=== PATIENT | male | born 1970 | race Caucasian/White ===

== ENCOUNTER → 2018-02-14 09:27 | Outpatient (CLI) | payer OTHER, SELFPAY ==
--- NOTE | 2018-02-14 | DI.MRI.S_ITS ---
PROCEDURE: MR LUMBAR SPINE WO CON INDICATIONS: LOW BACK AND LEG PAIN TECHNIQUE: Noncontrast sagittal T1 spin echo and T2 fast echo, sagittal STIR, axial T1 and T2 fast spin echo through the lumbar spine. In cases with scoliosis, additional coronal T2 fast spin echo may be performed. COMPARISON: [facility] [place], CR, XR LUMBAR SPINE WITH OLBIQUES PLUS FLEXION EXTENSION, 08/04/2017, 15:01. FINDINGS: Image quality: Excellent. Alignment and Curvature: There is normal bony alignment. Bone Marrow: Benign intraosseous hemangioma noted in the L3 vertebral body. No acute vertebral body compression fractures. Spinal Cord: Conus medullaris terminates at the L1 level. Visualized cord demonstrates normal signal and size. Paraspinous Soft Tissues: No paravertebral masses. L1-L2: Slight loss of the signal. Minimal, diffuse disc bulge. Small left central disc protrusion. No central stenosis. No neural foraminal narrowing. No neural impingement. L2-L3: Normal appearance. L3-L4: Normal appearance. L4-L5: Loss of disc signal and slight loss of disc height. Mild, diffuse disc bulge and small central disc protrusion. Mild bilateral facet hypertrophy. Mild narrowing of the central canal. Mild bilateral neural foraminal narrowing. Right central disc protrusion abuts and slightly displaces the traversing right L5 nerve root. Focal high intensity zone noted in posterior annulus compatible with a fissure. L5-S1: Loss of disc signal. Mild diffuse disc bulge with small left central disc protrusion. Mild bilateral facet hypertrophy. No central stenosis. Mild bilateral neural foraminal narrowing. No neural impingement. Focal high intensity zone noted in the posterior annulus compatible with a fissure. IMPRESSION: 1. Multilevel degenerative disc disease. 2. Multilevel facet arthropathy. 3. Mild L4-L5 central canal narrowing. 4. Mild bilateral L4-L5 and L5-S1 neural foraminal narrowing. 5. Right central L4-L5 disc protrusion abuts and slightly displaces the traversing right L5 nerve root. Please correlate with clinical data. 6. L4-L5 and L5-S1 disc annulus fissures. Dictated by: Teresa Vasquez MD, PhD on 02/14/2018 at 14:27 Approved by: Teresa Vasquez MD, PhD on 02/14/2018 at 14:35
== END ==
PROVIDERS: PCP Internal Medicine; Visit Provider Neurological Surgery
DX: M51.36 Other intervertebral disc degeneration, lumbar region (principal); M47.816 Spondylosis without myelopathy or radiculopathy, lumbar region; M48.061 Spinal stenosis, lumbar region without neurogenic claudication; M48.07 Spinal stenosis, lumbosacral region; M51.26 Other intervertebral disc displacement, lumbar region
CPT/HCPCS: 72148

== ENCOUNTER → 2019-03-03 09:51 | Outpatient (CLI) | payer OTHER, SELFPAY ==
[2019-03-03 10:36] LABS: Hematocrit 48.7 % (41-53); Hemoglobin 16.7 g/dL (13.5-17.5); Mean Corpuscular HGB Conc 34.2 % (30-36); Mean Corpuscular Hemoglobin 30.8 PG (26-34); Platelet Count 213 X10^3/uL (150-400); Red Blood Cell Count 5.42 X10^6/uL (4.5-5.9); Red Cell Distribution Width 13.2 % (11.6-14.8); White Blood Cell Count 4.7 X10^3/uL (4.5-11.0)
[2019-03-03 10:42] LABS: Alanine Aminotransferase 40 IU/L (21-72); Albumin 4.3 g/dL (3.5-5.0); Albumin Globulin Ratio 1.4 (1.0-2.8); Alkaline Phosphatase 54 U/L (38-126); Aspartate Aminotransferase 29 IU/L (17-59); BUN Creatinine Ratio 13.3 (6-22); Blood Urea Nitrogen 16 mg/dL (9-20); Calcium 9.3 mg/dL (8.4-10.2); Carbon Dioxide 29 mmol/L (22-32); Chloride 101 mmol/L (98-107); Cholesterol 211 mg/dL (140-199); Estimated Glomerular Filt Rate > 60.0 mL/min (>60); Glucose 97 mg/dL (70-100); HDL Cholesterol 49 mg/dL (40-60); HEMOLYSIS < 15 (0-50); LDL Cholesterol Calculated 141 mg/dL (<100); Potassium 4.2 mmol/L (3.4-5.1); Sodium 140 mmol/L (137-145); Total Protein 7.3 g/dL (6.3-8.2); Triglycerides 106 mg/dL (35-150)
[2019-03-03 12:02] LABS: TSH w/ Reflex to FT4 2.14 uIU/mL (0.47-4.68)
== END ==
PROVIDERS: PCP Internal Medicine; Visit Provider Nurse Practitioner Family
DX: Z00.00 Encounter for general adult medical examination without abnormal findings (principal); Z13.6 Encounter for screening for cardiovascular disorders; I49.9 Cardiac arrhythmia, unspecified
CPT/HCPCS: 36415; 80053; 80061; 84443; 85027

== ENCOUNTER → 2019-05-22 08:58 | Outpatient (CLI) | payer OTHER, SELFPAY ==
--- NOTE | 2019-05-22 08:59 | DI.RAD.S_ITS ---
PROCEDURE: XR FOOT RT MIN 3V INDICATIONS: Fifth metatarsal pain with weight-bearing x 6 months TECHNIQUE: 3 views of the foot were acquired. COMPARISON: None. FINDINGS: Bones: No fractures or dislocations. Bipartite tibial first digit sesamoid bone. Small bunion and bunionette. Minimal lucency at the fifth and first digit metatarsal heads. Small midfoot osteophytes. No suspicious bony lesions. Soft tissues: No tibiotalar joint effusion. Achilles tendon appears normal. IMPRESSION: Subtle lucency at the fifth and first digit metatarsal heads. This raises the possibility of mild stress fractures. Small bunion and bunionette. Three-phase bone scan could be performed for further evaluation. Dictated by: Lino Reynoso M.D. on 05/22/2019 at 9:29 Approved by: Lino Reynoso M.D. on 05/22/2019 at 9:33
== END ==
PROVIDERS: PCP Internal Medicine; Visit Provider Nurse Practitioner
DX: M79.671 Pain in right foot (principal); M21.611 Bunion of right foot; M21.621 Bunionette of right foot
CPT/HCPCS: 73630

== ENCOUNTER → 2019-08-22 11:44 | Outpatient (CLI) | payer OTHER, SELFPAY ==
[2019-08-24 16:22] LABS: Urea Breath Test >18YRS NOT DETECTED
== END ==
PROVIDERS: PCP Nurse Practitioner Family; Referring Provider Nurse Practitioner Family; Visit Provider Nurse Practitioner Family
DX: K21.9 Gastro-esophageal reflux disease without esophagitis (principal)
CPT/HCPCS: 83013

== ENCOUNTER → 2019-09-11 09:02 | Outpatient (CLI) | payer OTHER, SELFPAY ==
[2019-09-11 09:56] LABS: Cholesterol 213 mg/dL (140-199); HDL Cholesterol 45 mg/dL (40-60); LDL Cholesterol Calculated 152 mg/dL (<100); Triglycerides 80 mg/dL (35-150)
== END ==
PROVIDERS: PCP Nurse Practitioner Family; Referring Provider Nurse Practitioner Family; Visit Provider Nurse Practitioner Family
DX: E78.2 Mixed hyperlipidemia (principal)
CPT/HCPCS: 36415; 80061

== ENCOUNTER → 2019-09-28 07:32 | Outpatient (CLI) | payer OTHER, SELFPAY ==
--- NOTE | 2019-09-28 07:34 | DI.RAD.S_ITS ---
PROCEDURE: FL BARIUM SWALLOW INDICATIONS: gerd. define anatomy. any stricture or hiatal hernia? COMPARISON: [facility], CR, XR FOOT RT MIN 3V, 05/22/2019, 9:02. FINDINGS: Function: There is normal esophageal peristalsis. No elicited gastroesophageal reflux. There is normal transit of a calibrated barium tablet through the esophagus into the stomach. Morphology: Air-contrast images demonstrate normal mucosal morphology. Single contrast views show no esophageal strictures, extrinsic mass effects, or diverticula. Limited images of the stomach demonstrate normal appearance. IMPRESSION: Normal upper GI exam. No esophageal stricture or hiatal hernia. No gastroesophageal reflux elicited during the exam. Dictated by: Alexander Back M.D. on 09/28/2019 at 9:43 Approved by: Alexander Back M.D. on 09/28/2019 at 9:44
== END ==
PROVIDERS: PCP Nurse Practitioner Family; Referring Provider Specialist; Visit Provider Specialist
DX: K21.9 Gastro-esophageal reflux disease without esophagitis (principal)
CPT/HCPCS: 74220

== ENCOUNTER → 2020-06-26 10:14 | Outpatient (CLI) | payer OTHER, SELFPAY ==
--- NOTE | 2020-06-26 10:15 | DI.RAD.S_ITS ---
PROCEDURE: XR ANKLE LT MIN 3V INDICATIONS: pain bilaterally, worse with mvmt, r/o bony abnormality TECHNIQUE: 3 views of the ankle were acquired. COMPARISON: None. FINDINGS: Bones: No fractures or dislocations. Ankle mortise is normally aligned. No suspicious bony lesions. The talar dome demonstrates no sofi abnormality. A moderate plantar calcaneal spur is seen. Soft tissues: No tibiotalar joint effusion. Achilles tendon appears normal. IMPRESSION: No significant plain film abnormality is seen. A moderate plantar calcaneal spur can be seen. If it would be helpful for clinical management decision making, please consider a dedicated ankle MRI for further evaluation (assuming that there is no contraindication). Dictated by: Shyam Howell M.D. on 06/26/2020 at 9:35 Approved by: Shyam Howell M.D. on 06/26/2020 at 9:36
== END ==
PROVIDERS: PCP Nurse Practitioner Family; Referring Provider Physician Assistant; Visit Provider Physician Assistant
DX: M25.572 Pain in left ankle and joints of left foot (principal); M77.32 Calcaneal spur, left foot
CPT/HCPCS: 73610

== ENCOUNTER → 2021-01-09 08:16 | Outpatient (CLI) | payer OTHER, SELFPAY ==
[2021-01-09 08:46] LABS: Hematocrit 45.8 % (41-53); Hemoglobin 15.8 g/dL (13.5-17.5); Mean Corpuscular HGB Conc 34.4 % (30-36); Mean Corpuscular Hemoglobin 31.3 PG (26-34); Mean Corpuscular Volume 90.9 fL (80-100); Platelet Count 209 X10^3/uL (150-400); Red Blood Cell Count 5.04 X10^6/uL (4.5-5.9); White Blood Cell Count 4.7 X10^3/uL (4.5-11.0)
[2021-01-09 08:58] LABS: Alanine Aminotransferase 37 IU/L (<50); Albumin 4.1 g/dL (3.5-5.0); Albumin Globulin Ratio 1.6 (1.0-2.8); Alkaline Phosphatase 60 U/L (38-126); Aspartate Aminotransferase 32 IU/L (17-59); BUN Creatinine Ratio 16.5 (6-22); Bilirubin Total 0.6 mg/dL (0.2-1.3); Blood Urea Nitrogen 19 mg/dL (9-20); Calcium 9.5 mg/dL (8.4-10.2); Carbon Dioxide 28 mmol/L (22-32); Chloride 106 mmol/L (98-107); Cholesterol 212 mg/dL (140-199); Estimated Glomerular Filt Rate > 60.0 mL/min (>60); Globulin 2.6 g/dL (1.7-4.1); Glucose 108 mg/dL (70-100); HDL Cholesterol 62 mg/dL (40-60); HEMOLYSIS < 15 (0-50); LDL Cholesterol Calculated 137 mg/dL (<100); Potassium 4.4 mmol/L (3.4-5.1); Sodium 140 mmol/L (137-145); Total Protein 6.7 g/dL (6.3-8.2); Triglycerides 64 mg/dL (35-150)
== END ==
PROVIDERS: PCP Nurse Practitioner Family; Referring Provider Nurse Practitioner Family; Visit Provider Nurse Practitioner Family
DX: Z00.00 Encounter for general adult medical examination without abnormal findings (principal); Z13.6 Encounter for screening for cardiovascular disorders
CPT/HCPCS: 36415; 80053; 80061; 85027

== ENCOUNTER → 2021-01-14 13:06 | Outpatient (CLI) | payer OTHER, SELFPAY ==
--- NOTE | 2021-01-14 13:08 | DI.MRI.S_ITS ---
PROCEDURE: MR LUMBAR SPINE WO CON INDICATIONS: lumbar pain, hx of surgery TECHNIQUE: Noncontrast sagittal T1 spin echo and T2 fast echo, sagittal STIR, axial T1 and T2 fast spin echo through the lumbar spine. In cases with scoliosis, additional coronal T2 fast spin echo may be performed. COMPARISON: [facility], MR, MR LUMBAR SPINE WO CON, 02/14/2018, 9:56. [facility], CR, XR LUMBAR SPINE WITH OLBIQUES PLUS FLEXION EXTENSION, 08/04/2017, 15:01. FINDINGS: Image quality: Excellent. Alignment and Curvature: There are 5 lumbar type vertebral bodies by plain film. Bone Marrow: Marrow is of normal overall signal. No acute vertebral body compression fractures. L3 hemangioma. Mild reactive signal within the endplates adjacent to the L4-L5 and L5-S1 intervertebral discs. Spinal Cord: Conus medullaris terminates at the L1-L2 disc space level. Visualized cord demonstrates normal signal and size. Paraspinous Soft Tissues: No paravertebral masses. T12-L1: Moderate disc height loss and desiccation. Mild facet and ligamentum flavum hypertrophy. Mild epidural lipomatosis. No significant canal, or foraminal stenosis. No change. L1-L2: Mild disc height loss and desiccation. Mild diffuse disc bulge with small superimposed left paracentral protrusion. Mild epidural lipomatosis. Mild canal stenosis. Mild bilateral foraminal stenosis. No significant change. L2-L3: Mild disc desiccation and diffuse disc bulge. Mild facet and ligamentum flavum hypertrophy. Mild epidural lipomatosis. Mild canal stenosis. Mild bilateral foraminal stenosis. No significant change. L3-L4: Mild disc desiccation and diffuse disc bulge. Mild facet and ligamentum flavum hypertrophy. Mild epidural lipomatosis. Mild canal stenosis. Mild left foraminal stenosis. No right foraminal stenosis. No significant change. L4-L5: Moderate disc height loss and desiccation. Mild diffuse disc bulge with superimposed central protrusion. Mild bilateral facet and ligamentum flavum hypertrophy. Mild canal stenosis. Mild left and moderate right foraminal stenosis. No significant change. L5-S1: Moderate disc height loss and desiccation. Mild diffuse disc bulge with superimposed left paracentral protrusion. Mild bilateral facet hypertrophy. Mild canal stenosis. Moderate bilateral foraminal stenosis. No significant change. IMPRESSION: 1. Multilevel degenerative disc and facet disease, as well as ligamentum flavum hypertrophy and epidural lipomatosis. 2. Mild multilevel canal stenosis. 3. Multilevel foraminal stenoses, worst at L4-L5 and L5-S1 where there are moderate foraminal stenosis. Dictated by: Tawanda Be M.D. on 01/14/2021 at 14:22 Approved by: Tawanda Be M.D. on 01/14/2021 at 14:25
== END ==
PROVIDERS: PCP Nurse Practitioner Family; Referring Provider Nurse Practitioner Family; Visit Provider Nurse Practitioner Family
DX: M54.5 Low back pain (principal); M54.9 Dorsalgia, unspecified; M48.061 Spinal stenosis, lumbar region without neurogenic claudication; M48.07 Spinal stenosis, lumbosacral region; M51.36 Other intervertebral disc degeneration, lumbar region; M51.37 Other intervertebral disc degeneration, lumbosacral region; G89.29 Other chronic pain; Z98.890 Other specified postprocedural states
CPT/HCPCS: 72148

== ENCOUNTER → 2021-05-23 09:17 | Outpatient (CLI) | payer OTHER, SELFPAY ==
[2021-05-23 10:23] LABS: Hematocrit 45.4 % (41-53); Hemoglobin 15.4 g/dL (13.5-17.5); Mean Corpuscular Hemoglobin 30.9 PG (26-34); Mean Corpuscular Volume 90.9 fL (80-100); Platelet Count 218 X10^3/uL (150-400); Red Cell Distribution Width 12.5 % (11.6-14.8); White Blood Cell Count 4.6 X10^3/uL (4.5-11.0)
[2021-05-23 10:39] LABS: Alanine Aminotransferase 27 IU/L (<50); Albumin 4.2 g/dL (3.5-5.0); Albumin Globulin Ratio 1.6 (1.0-2.8); Alkaline Phosphatase 47 U/L (38-126); Aspartate Aminotransferase 23 IU/L (17-59); BUN Creatinine Ratio 12.8 (6-22); Blood Urea Nitrogen 14 mg/dL (9-20); Calcium 9.3 mg/dL (8.4-10.2); Carbon Dioxide 31 mmol/L (22-32); Chloride 102 mmol/L (98-107); Estimated Glomerular Filt Rate > 60.0 mL/min (>60); Globulin 2.6 g/dL (1.7-4.1); Glucose 105 mg/dL (70-100); HEMOLYSIS < 15 (0-50); Potassium 4.1 mmol/L (3.4-5.1); Sodium 138 mmol/L (137-145); Total Protein 6.8 g/dL (6.3-8.2)
[2021-05-23 11:44] LABS: TSH w/ Reflex to FT4 2.37 uIU/mL (0.47-4.68)
== END ==
PROVIDERS: PCP Nurse Practitioner Family; Referring Provider Nurse Practitioner Family; Visit Provider Nurse Practitioner Family
DX: Z00.00 Encounter for general adult medical examination without abnormal findings (principal); R94.31 Abnormal electrocardiogram [ECG] [EKG]; I49.3 Ventricular premature depolarization
CPT/HCPCS: 36415; 80053; 83735; 84443; 85027

== ENCOUNTER → 2021-06-02 15:02 | Outpatient (CLI) | payer OTHER, SELFPAY ==
--- NOTE | 2021-07-01 16:59 | P.HOLT.S_ITS ---
Logistics Management Specialist Report Referral & Results Date Patient Seen: 06/02/21 Requesting provider: Lilly Davies Indication: PVCs Duration of monitoring (days): 14 Diary information: There were 2 patient triggered events and 2 patient diary entries to review Patient diary events were associated with (within 45 seconds) sinus rhythm, PVCs and ventricular trigeminy Patient triggered events were associated with (within 45 seconds) sinus rhythm and PVCs Data: Minimum heart rate identified was 43 beats per minute at 06:50 on 06/14/2021 Maximum sinus heart rate was 162 beats per minute at 21:49 on 06/06/2021 Maximum overall heart rate was 169 beats per minute at 21:43 on 06/11/2021 during a run of SVT There was 1 run of nonsustained ventricular tachycardia was 4 beats in duration at a rate of 167 beats per minute There were 2 runs of SVT with the fastest lasting 8 beats at a rate of 169 beats per minute which was also the longest run Less than 1% of identified beats were supraventricular ectopic in origin Approximately 16.7% of identified beats were ventricular ectopic in origin which would classify them as frequent. This included 2 minute 50 a 2nd run of ventricular trigeminy Impression: 14 day air sampling and monitoring demonstrating above dysrhythmias including single nonsustained run of VT. Also patient had frequent ventricular ectopy including couplets and fairly limited runs of ventricular trigeminy Clinical correlation suggested
== END ==
LOC: CAR 15:03 → HOLT 07-28 13:17
PROVIDERS: PCP Nurse Practitioner Family; Referring Provider Nurse Practitioner Family; Visit Provider Nurse Practitioner Family
DX: Z82.49 Family history of ischemic heart disease and other diseases of the circulatory system (principal); I49.3 Ventricular premature depolarization; R94.31 Abnormal electrocardiogram [ECG] [EKG]
CPT/HCPCS: 93246; 93248

== ENCOUNTER 2021-10-02 14:54 | Emergency (ER) | payer OTHER, SELFPAY ==
[2021-10-02] VITALS (11 sets, daily range): BP systolic 136–154; BP diastolic 74–89; PULSE 64–76; RESP 13–24; TEMP 37.1; O2SAT 95–100; BMI 31.5
--- NOTE | 2021-10-02 15:07 | DI.RAD.S_ITS ---
PROCEDURE: XR CHEST 1V INDICATIONS: recent cath TECHNIQUE: One view of the chest was acquired. COMPARISON: None. FINDINGS: Surgical changes and devices: None. Lungs and pleura: Lungs are clear. No pleural effusions or pneumothorax. Mediastinum: Mediastinal contours appear normal. Heart size is normal. Bones and chest wall: No suspicious bony lesions. Overlying soft tissues appear unremarkable. IMPRESSION: No acute pulmonary process. Dictated by: Tiffanie Ch M.D. on 10/02/2021 at 15:23 Approved by: Tiffanie Ch M.D. on 10/02/2021 at 15:23
--- NOTE | 2021-10-02 15:14 | ED.NEUROSD ---
HPI - Neuro Symptoms/Deficit General Chief Complaint: Eye Problems Stated Complaint: Left Heart Cath/Headache/Blurry Vision Time Seen by Provider: 10/02/21 14:57 History of Present Illness HPI Narrative: 51-year-old former smoker with history of GERD, lumbar pain, PVCs, abnormal EKG presents with in the chief complaint of a relatively sudden onset left eye vision change that started at about 1 or 130 this afternoon, lasted about half an hour and is now gone. He now has with feels like pain behind his left eye. He denies any trauma or injury and denies any other neurologic symptoms such as dizziness or lightheadedness, double vision, trouble with speech, finding words or extremity numbness, tingling or weakness. He had a heart catheterization this morning at [facility] and was discharged home and symptoms started soon after arriving. He does have a remote history of migraines that on some levels presented in a similar fashion except with bilateral eye pain. Related Data Home Medications Medication Instructions Recorded Confirmed No Known Home Medications 01/02/21 05/22/21 Allergies Allergy/AdvReac Type Severity Reaction Status Date / Time No Known Drug Allergies Allergy Verified 05/22/21 10:28 Review of Systems Review of Systems Narrative: GENERAL: Denies chills, fatigue, malaise, fever, sweats. HEENT: Denies sinus pain, ear pain, sore throat, difficulty swallowing, dizziness. RESPIRATORY: Denies dyspnea, cough, wheezing, hemoptysis, sputum. CARDIOVASCULAR: Denies chest pain, palpitations, orthopnea, edema, GASTROINTESTINAL: Denies nausea, vomiting, abdominal pain, diarrhea, constipation, melena. : Denies dysuria, frequency, incontinence, hematuria, urinary retention. MUSCULOSKELETAL: denies weakness, joint pain, or bony pain SKIN: Denies rash, skin lesions, or other NEUROLOGIC: Denies weakness, headache, numbness, change in speech, confusion, seizures, incoordination. PSYCHIATRIC: No concerning psychosocial issues. 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) GERD (gastroesophageal reflux disease) (2009) Inferior calcaneal bone spur Mixed hyperlipidemia Partial blindness (~2006) Surgical History (Updated 01/02/21 @ 09:35 by EFRAIN Perez) Anesthesia History of carpal tunnel release (~2016) History of discectomy (~2017) History of knee surgery (~2007) History of lumbar surgery (2018) Family History Father History of heart disease Mother History of heart disease Social History Smoking Status: Former smoker Tobacco: How many years used: 20 Smokeless tobacco user: chewing tobacco quit status: not considering quitting second hand exposure: No alcohol intake: current substance use type: does not use Smoking Status: Former smoker Exam Narrative Exam Narrative: GENERAL: [51] year old patient appears stated age. Well-developed patient, in mild distress. Patient is resting in a dark room HEAD: Atraumatic. Normocephalic. EYES: Pupils equal round and reactive. Extraocular motions intact. No scleral icterus. No injection or drainage. ENT: Nose without bleeding, purulent drainage. Throat without erythema, tonsillar hypertrophy or exudate. Airway patent. NECK: Trachea midline. Non tender CARDIOVASCULAR: Regular rate and rhythm without murmurs, gallops, or rubs. RESPIRATORY: Clear to auscultation. Breath sounds equal bilaterally. No wheezes, rales, or rhonchi. GASTROINTESTINAL: Abdomen soft, non-tender, nondistended. EXTREMITIES: No edema or joint tenderness. BACK: Nontender without deformity or crepitance. No flank tenderness. NEURO: AOx3. SKIN: No rash or erythema of visible areas NIH Stroke Scale 1a. LOC: Patient is alert and keenly responsive (0) 1b. LOC Questions: Patient answers both LOC questions accurately (0) 1c. LOC Commands: Patient performs both tasks correctly (0) 2. Best Gaze: Normal (0) 3. Visual: No visual loss (0) 4. Facial palsy: Normal symmetrical movements (0) 5. Motor arm: No drift (0) 6. Motor leg: No drift (0) 7. Limb ataxia: Absent (0) 8. Sensory: Normal (0) 9. Best language: No aphasia; normal (0) 10. Dysarthria: Normal (0) 11. Extinction and inattention: No abnormality (0) NIHSS: 0 Initial Vital Signs Initial Vital Signs: Vital Signs Pulse Rate 76 10/02/21 15:00 Course Orders Ordered: Discontinued Medications Sodium Chloride (Normal Saline 0.9%) 1,000 mls @ 1,000 mls/hr IV BOLUS ONE Stop: 10/02/21 16:53 Last Infusion: 10/02/21 18:02 Dose: 0 mls/hr Documented by: Admin: 10/02/21 16:02 Dose: 1,000 mls/hr Documented by: TIMOTHY Ketorolac Tromethamine (Ketorolac 30 Mg/Ml Vial) 15 mg IV NOW ONE Stop: 10/02/21 16:13 Last Admin: 10/02/21 16:37 Dose: 15 mg Documented by: TIMOTHY Metoclopramide HCl (Metoclopramide 10 Mg/2 Ml Inj) 10 mg IV NOW ONE Stop: 10/02/21 15:55 Last Admin: 10/02/21 16:03 Dose: 10 mg Documented by: TIMOTHY Consultations Consultation #1: discussed with electric gas appliances demonstrator cardio (Dr. Segura) who agrees with plan to rule out CVA and other potential complications in the aftermath of a heart catheterization but sure the opinion this is unlikely the source of symptoms Consultation #2: discussed with Dr. Mcdonnell (interventional cardio) and is happy with our plan, additionally states it was a clean cath with very low concern of any perforation etc. Consultation #3: mutliple calls to Telestroke without response Vital Signs Vital signs: Vital Signs - 8 hr 10/02/21 15:00 10/02/21 15:02 10/02/21 15:21 Temperature 98.7 F Pulse Rate 76 71 65 Respiratory Rate 23 19 Blood Pressure 154/84 H 142/86 H Pulse Oximetry 100 99 10/02/21 15:30 10/02/21 15:31 10/02/21 16:00 Temperature Pulse Rate 66 68 68 Respiratory Rate 16 17 14 Blood Pressure 136/79 Pulse Oximetry 95 95 99 10/02/21 16:01 10/02/21 16:30 Temperature Pulse Rate 66 67 Respiratory Rate 13 21 Blood Pressure 149/81 H 139/89 Pulse Oximetry 98 98 MDM - Neuro Symptoms/Deficit Lab Data Attestation: I reviewed the patient's lab results. Result diagrams: 10/02/21 15:17 10/02/21 15:17 Labs: Lab Results 10/02/21 10/02/21 10/02/21 Range/Units 15:17 15:17 15:17 WBC 5.8 (4.5-11.0) X10^3/uL RBC 4.74 (4.5-5.9) X10^6/uL Hgb 14.7 (13.5-17.5) g/dL Hct 42.2 (41-53) % MCV 89.1 (80-100) fL MCH 31.1 (26-34) PG MCHC 34.9 (30-36) % RDW 13.4 (11.6-14.8) % Plt Count 230 (150-400) X10^3/uL Neut % (Auto) 56.0 (50-75) % Lymph % (Auto) 27.6 (25-40) % [place] % (Auto) 11.8 (3-14) % Eos % (Auto) 3.3 (2-4) % Baso % (Auto) 1.3 (0-2) % Neut # (Auto) 3200 (7280-1400) /uL Lymph # (Auto) 1600 (4191-6838) /uL [place] # (Auto) 700 (0-900) /uL Eos # (Auto) 200 (0-450) /uL Baso # (Auto) 100 (0-100) /uL Sodium 137 (137-145) mmol/L Potassium 4.3 (3.4-5.1) mmol/L Chloride 103 (98-107) mmol/L Carbon Dioxide 31 (22-32) mmol/L BUN 15 (9-20) mg/dL Creatinine 1.09 (0.66-1.25) mg/dL Estimated GFR > 60.0 (>60) mL/min BUN/Creatinine Ratio 13.8 (6-22) Glucose 107 H (70-100) mg/dL Calcium 8.7 (8.4-10.2) mg/dL Total Bilirubin 0.5 (0.2-1.3) mg/dL AST 24 (17-59) IU/L ALT 34 (<50) IU/L Alkaline Phosphatase 48 (38-126) U/L Total Creatine Kinase 55 (55-170) U/L CK-MB (CK-2) TNP CK-MB (CK-2) Rel Index TNP Troponin I < 0.012 (0.01-0.034) ng/mL NT-Pro-B Natriuret Pep 39 (<125) pg/mL Total Protein 6.7 (6.3-8.2) g/dL Albumin 4.0 (3.5-5.0) g/dL Globulin 2.7 (1.7-4.1) g/dL Albumin/Globulin Ratio 1.5 (1.0-2.8) Imaging Data CT scan - head: Radiologist's Impression: Nilo Henson??51??M??1970 ? Allergy/Adv: No Known Drug Allergies Close Head/Neck CTA (Signed) Shyam Howell - 10/02/[address] (Signed) Albert Henson - 10/02/21 Chest X-Ray (Signed) Tiffanie Ch - 10/02/21 Lumbar Spine MRI (Signed) Tawanda Be - 01/14/21 Ankle X-Ray (Signed) Shyam Howell - 06/26/20 Barium Swallow X-Ray (Signed) Riley Back - 09/28/19 Foot X-Ray (Signed) Lino Reynoso - 05/22/19 Lumbar Spine MRI (Signed) Teresa Vasquez - 02/14/18 [place] [address] CT Scan Report Signed Patient: Nilo Henson MR#: [id number] : 1970 Acct:[id number] Age/Sex: 51 / M Date of Service: 10/02/21 Loc: ED Accession Number: [id number] ?? Procedure: CT angio head and neck Ordering Provider: Chris Rossi D.O. PROCEDURE:? CT ANGIO HEAD AND NECK ? INDICATIONS:? left side headache, vision change, heart cath this morning ? TECHNIQUE:? Noncontrast images were performed earlier in the day and not repeated.? ? After the administration of intravenous contrast, 1 mm thick sections acquired from the aortic arch through the [place] of Garcia.? Post-contrast 4.5 mm thick sections then re-acquired from the foramen magnum to the vertex.? 3-dimensional iaizjxm-rcrhivfca-ujmblenzfr (MIP) and/or volume rendering reformats were acquired of the central intracranial vasculature and neck separately. ? COMPARISON:? [facility], CT, CT HEAD/BRAIN WO CON, 10/02/2021, 15:50. ? FINDINGS:? Image quality:? The study is limited by bolus timing, with venous contamination. ? BRAIN:? CSF spaces:? Ventricles are normal in size and shape.? Basal cisterns are patent.? No extra-axial fluid collections.? ? Brain:? No midline shift.? No intracranial bleeds or masses.? Kirk-white matter interface appears intact.? ? Skull and face:? Calvarium and facial bones appear intact, without suspicious lesions.? Orbits appear normal.? ? Sinuses:? Sinuses and mastoids are clear.? ? HEAD CT ANGIOGRAPHY:? Anterior circulation:? Intracranial internal carotid arteries are normal in size and flow.? The flow within the paired anterior cerebral arteries is normal and symmetric.? The flow within the middle cerebral arteries is normal and symmetric.? The anterior communicating artery is seen.? No aneurysms are seen.? ? Posterior circulation:? Visualized portions of the vertebral arteries demonstrate normal caliber, and join to form a normal appearing basilar artery.? There is visualization of both posterior communicating arteries.? Flow within the posterior cerebral arteries is normal and symmetric.? No aneurysms are seen.? ? NECK CT ANGIOGRAPHY:? Carotid system:? The great vessels demonstrate a conventional anatomy as they arise from the aortic arch.? The origins of the common carotid arteries appear patent.? The common carotid arteries demonstrate normal caliber and courses.? The bifurcation regions are both widely patent.? The internal carotid arteries demonstrate normal calibers and courses.? ? Posterior circulation:? The origins of the vertebral arteries both appear widely patent.? The more superior extracranial portions of both vertebral arteries also demonstrate normal courses and calibers.? They join to form a normal appearing basilar artery.? ? Soft tissues:? Visualized neck soft tissues demonstrate no suspicious abnormalities.? ? Bones:? No suspicious bony lesions.? Visualized cervical spine appears normally aligned.? IMPRESSION:? No significant intracranial arterial abnormality is seen.? ? Within the arteries of the neck, no hemodynamically significant stenosis can be seen. ? ? Any quantitative measurements of stenosis were performed using NASCET criteria.? ? ? Dictated by: Shyam Howell M.D. on 10/02/2021 at 16:18 ? ? Approved by: Shyam Howell M.D. on 10/02/2021 at 16:20 ? [facility] Narrative Medical decision making narrative: Patient presents with his in the chief complaint of gradually worsening left-sided headache and associated haziness to his visual field in his left eye. He denies any trauma, injury or fever and does admit to a history of migraines which often presents similarly. Given his heart catheterization early in the day multiple calls to Cardiology and interventional cardiology replaced. Advanced imaging assessing for stroke, aneurysm and dissection were performed with unremarkable findings. At no point did patient have any chest pain or shortness of breath. Symptoms completely resolved after treatment for migraine headache. Extensive return precautions discussed with the patient and questions answered to his apparent satisfaction Discharge Plan Departure Patient Disposition: Home Clinical Impression: Atypical migraine Instructions: Migraine -- Adult Activity Restrictions/Additional Instructions: *You have been diagnosed with [atypical migraine. As we discussed your history and physical exam as well as labs, EKG and imaging are very reassuring. I have been in contact with your cardiology group Na sure the same opinion and are comfortable with you following up with her group as previously planned *What to do: *Please continue to take your regular medications as directed. [ ] New medication prescriptions sent to your pharmacy: [ ] [ ] New medication written as a paper prescription [x ] No new medications given *Please follow up with your primary care provider in 2-3 days, call for an appointment. Let them know you were seen in the Emergency Department and that we ask that you be seen in follow up. We will electronically transmit a record of today's note if your PCP is in our system *If you do not have a primary care provider please contact the [facility] Resource line at [phone]. They will ask some questions about your medical history and help get you set up with a doctor in the community. *Return to Emergency Department if you should have any new, worsening or concerning symptoms, such as [fever greater than 101 F, shaking chills, worsening pain, persistent vomiting or other bothersome symptoms] Prescriptions: No Action No Known Home Medications 0RF Referrals: Lilly Davies ARNP [Primary Care Provider] -
[2021-10-02 15:26] LABS: Add Manual Diff / Slide Review NO; Basophils Absolute Auto 100 /uL (0-100); Basophils Percent Auto 1.3 % (0-2); Eosinophils Absolute Auto 200 /uL (0-450); Eosinophils Percent Auto 3.3 % (2-4); Hematocrit 42.2 % (41-53); Hemoglobin 14.7 g/dL (13.5-17.5); Lymphocytes Absolute Auto 1600 /uL (1100-4500); Lymphocytes Percent Auto 27.6 % (25-40); Mean Corpuscular HGB Conc 34.9 % (30-36); Mean Corpuscular Hemoglobin 31.1 PG (26-34); Mean Corpuscular Volume 89.1 fL (80-100); Monocytes Absolute Auto 700 /uL (0-900); Monocytes Percent Auto 11.8 % (3-14); Neutrophils Absolute Auto 3200 /uL (1500-7000); Platelet Count 230 X10^3/uL (150-400); Red Blood Cell Count 4.74 X10^6/uL (4.5-5.9); Red Cell Distribution Width 13.4 % (11.6-14.8); White Blood Cell Count 5.8 X10^3/uL (4.5-11.0)
[2021-10-02 15:40] LABS: Alanine Aminotransferase 34 IU/L (<50); Albumin Globulin Ratio 1.5 (1.0-2.8); Alkaline Phosphatase 48 U/L (38-126); Aspartate Aminotransferase 24 IU/L (17-59); BUN Creatinine Ratio 13.8 (6-22); Bilirubin Total 0.5 mg/dL (0.2-1.3); Blood Urea Nitrogen 15 mg/dL (9-20); Calcium 8.7 mg/dL (8.4-10.2); Carbon Dioxide 31 mmol/L (22-32); Chloride 103 mmol/L (98-107); Creatine Kinase 55 U/L (55-170); Estimated Glomerular Filt Rate > 60.0 mL/min (>60); Globulin 2.7 g/dL (1.7-4.1); Glucose 107 mg/dL (70-100); HEMOLYSIS < 15 (0-50); Potassium 4.3 mmol/L (3.4-5.1); Sodium 137 mmol/L (137-145); Total Protein 6.7 g/dL (6.3-8.2)
--- NOTE | 2021-10-02 15:40 | DI.CT.S_ITS ---
PROCEDURE: CT HEAD/BRAIN WO CON INDICATIONS: severe L side head ache with vision change TECHNIQUE: Noncontrast 4.5 mm thick angled axial sections acquired from the foramen magnum to the vertex, with coronal and sagittal reformats. For radiation dose reduction, the following was used: automated exposure control, adjustment of mA and/or kV according to patient size. COMPARISON: None. FINDINGS: Image quality: Excellent. CSF spaces: Basal cisterns are patent. No extra-axial fluid collections. Ventricles are normal in size and shape. Brain: No midline shift. No intracranial masses or hemorrhage. Kirk-white matter interface is normal. Skull and face: Calvarium and visualized facial bones are intact, without suspicious lesions. Sinuses: Visualized sinuses and mastoids are clear. IMPRESSION: No acute intracranial abnormality. Dictated by: Albert Henson M.D. on 10/02/2021 at 15:55 Approved by: Albert Henson M.D. on 10/02/2021 at 15:58
[2021-10-02 15:52] LABS: NT-proBNP (BNP-Adult 18+) 39 pg/mL (<125); Troponin I < 0.012 ng/mL (0.01-0.034)
[2021-10-02] MEDS: SODIUM CHLORIDE 0.9% 1,000 ML 1000 ML IV (16:02)
[2021-10-02] MEDS: METOCLOPRAMIDE 10 MG/2 ML INJ IV (16:03)
--- NOTE | 2021-10-02 16:33 | PC.NURSE ---
Dr. jimenez aware that pt's headache is now moving to his right side of his head. worse when lying flat at the ct scan
[2021-10-02] MEDS: KETOROLAC 30 MG/ML VIAL 15 MG IV (16:37)
--- NOTE | 2021-10-02 16:42 | DI.CT.S_ITS ---
PROCEDURE: CT ANGIO HEAD AND NECK INDICATIONS: left side headache, vision change, heart cath this morning TECHNIQUE: Noncontrast images were performed earlier in the day and not repeated. After the administration of intravenous contrast, 1 mm thick sections acquired from the aortic arch through the [place]. Post-contrast 4.5 mm thick sections then re-acquired from the foramen magnum to the vertex. 3-dimensional ghodwid-fkmrwsgcd-gogysowvnx (MIP) and/or volume rendering reformats were acquired of the central intracranial vasculature and neck separately. COMPARISON: [facility], CT, CT HEAD/BRAIN WO CON, 10/02/2021, 15:50. FINDINGS: Image quality: The study is limited by bolus timing, with venous contamination. BRAIN: CSF spaces: Ventricles are normal in size and shape. Basal cisterns are patent. No extra-axial fluid collections. Brain: No midline shift. No intracranial bleeds or masses. Kirk-white matter interface appears intact. Skull and face: Calvarium and facial bones appear intact, without suspicious lesions. Orbits appear normal. Sinuses: Sinuses and mastoids are clear. HEAD CT ANGIOGRAPHY: Anterior circulation: Intracranial internal carotid arteries are normal in size and flow. The flow within the paired anterior cerebral arteries is normal and symmetric. The flow within the middle cerebral arteries is normal and symmetric. The anterior communicating artery is seen. No aneurysms are seen. Posterior circulation: Visualized portions of the vertebral arteries demonstrate normal caliber, and join to form a normal appearing basilar artery. There is visualization of both posterior communicating arteries. Flow within the posterior cerebral arteries is normal and symmetric. No aneurysms are seen. NECK CT ANGIOGRAPHY: Carotid system: The great vessels demonstrate a conventional anatomy as they arise from the aortic arch. The origins of the common carotid arteries appear patent. The common carotid arteries demonstrate normal caliber and courses. The bifurcation regions are both widely patent. The internal carotid arteries demonstrate normal calibers and courses. Posterior circulation: The origins of the vertebral arteries both appear widely patent. The more superior extracranial portions of both vertebral arteries also demonstrate normal courses and calibers. They join to form a normal appearing basilar artery. Soft tissues: Visualized neck soft tissues demonstrate no suspicious abnormalities. Bones: No suspicious bony lesions. Visualized cervical spine appears normally aligned. IMPRESSION: No significant intracranial arterial abnormality is seen. Within the arteries of the neck, no hemodynamically significant stenosis can be seen. Any quantitative measurements of stenosis were performed using NASCET criteria. Dictated by: Shyam Howell M.D. on 10/02/2021 at 16:18 Approved by: Shyam Howell M.D. on 10/02/2021 at 16:20
== END 2021-10-02 18:16 | disposition home or self-care (01) ==
PROVIDERS: Emergency Provider Emergency Medicine; PCP Nurse Practitioner Family
DX: G43.809 Other migraine, not intractable, without status migrainosus (principal); Z87.891 Personal history of nicotine dependence
CPT/HCPCS: 36415; 70450; 70496; 70498; 71045; 80053; 82550; 83880; 84484; 85025; 93005; 93010; 96361; 96374; 96375; 99284; J1885; J2765; Q9967